=== PATIENT | female | born 1990 | race Caucasian/White ===

== ENCOUNTER 2017-06-30 07:29 | Emergency (ER) | payer OTHER ==
[~2017-06-30] VITALS: Ht 165.1 cm; Wt 63.0 kg
[2017-06-30] MEDS ORDERED: METOCLOPRAMIDE HCL 10MG/2ML VIAL IV STA (09:50)
[2017-06-30] MEDS ORDERED: FAMOTIDINE 20MG/2ML VIAL IV STA (09:50)
[2017-06-30] MEDS ORDERED: SODIUM CHLORIDE 0.9% 1,000 ML IV ONE (09:50)
[2017-06-30 10:29] LABS: BASOPHILS % 0.7 % (0.0-2.0); EOSINOPHILS % 1.6 % (0.0-5.0); HEMATOCRIT. 42.6 % (36.0-48.0); HEMOGLOBIN. 14.1 g/dL (12.0-16.0); LYMPHOCYTES % 20.3 % (20.0-50.0); MEAN CORPUSCULAR HEMOGLOBIN 29.6 pg (28.0-32.0); MEAN CORPUSCULAR VOLUME 89.1 fL (81.0-99.0); MEAN PLATELET VOLUME 7.7 fl (7.4-10.4); MONOCYTES % 8.9 % (2.0-8.0); NEUTROPHILS % 68.5 % (40.0-76.0); PLATELET 248 x1000/uL (130-400); RED BLOOD CELL COUNT 4.78 mill/uL (4.2-5.4); RED CELL DISTRIBUTION WIDTH 14.2 % (11.6-14.6)
[2017-06-30 10:34] LABS: CHLORIDE 109 mEq/L (98-107)
[2017-06-30 10:49] LABS: HCG SCREEN NEGATIVE
[2017-06-30 12:23] VITALS: BP 123/74
[2017-06-30 13:48] LABS: CLARITY URINE CLOUDY (CLEAR); COLOR URINE ORANGE (YELLOW); KETONES URINE NEGATIVE (NEGATIVE); LEUKOCYTE ESTERASE URINE NEGATIVE (NEGATIVE); NITRITE URINE NEGATIVE (NEGATIVE); OCCULT BLOOD URINE 3+ (NEGATIVE); PH URINE >=9.0 (4.5-8.0); PROTEIN URINE TRACE (NEGATIVE); SPECIFIC GRAVITY URINE 1.014 (1.005-1.030); UROBILINOGEN URINE 0.2 E.U./dL (0.2-1.0)
== END 2017-06-30 12:42 | disposition home or self-care (01) ==
LOC: ER 07:34
DX: R10.13 Epigastric pain (principal)
CPT/HCPCS: 36415; 80053; 81001; 81025; 83690; 84703; 85025; 96361; 96374; 96375; 99285; J3490; J7030; Z7610

== ENCOUNTER 2018-09-12 21:59 | Emergency (ER) | payer OTHER ==
[~2018-09-12] VITALS: Ht 165.1 cm; Wt 63.0 kg
[2018-09-12 22:24] VITALS: BP 102/54
== END 2018-09-13 00:34 | disposition left against medical advice (07) ==
LOC: ER 21:59
DX: Z53.21 Procedure and treatment not carried out due to patient leaving prior to being seen by health care provider (principal)

== ENCOUNTER 2020-05-01 16:46 | Emergency (ER) | payer OTHER ==
[~2020-05-01] VITALS: Ht 165.1 cm; Wt 66.0 kg
[2020-05-01] MEDS ORDERED: MORPHINE SULFATE 4 MG/ML CPJ (NOT FOR IM USE) IV STA (18:21)
[2020-05-01 18:42] LABS: HEMATOCRIT. 37.6 % (36.0-48.0); HEMOGLOBIN. 12.6 g/dL (12.0-16.0); MEAN CORPUSCULAR HEMOGLOBIN 30.9 pg (28.0-32.0); MEAN PLATELET VOLUME 7.8 fl (7.4-10.4); PLATELET 180 x1000/uL (130-400); RED BLOOD CELL COUNT 4.09 mill/uL (4.2-5.4); RED CELL DISTRIBUTION WIDTH 12.7 % (11.6-14.6)
[2020-05-01 18:48] LABS: CHLORIDE 106 mEq/L (98-107)
[2020-05-01 18:54] LABS: HCG SCREEN NEGATIVE
[2020-05-01 19:15] LABS: PLATELET ESTIMATE NORMAL
[2020-05-01 21:48] LABS: CLARITY URINE CLOUDY (CLEAR); COLOR URINE YELLOW (YELLOW); KETONES URINE 1+ (NEGATIVE); LEUKOCYTE ESTERASE URINE NEGATIVE (NEGATIVE); NITRITE URINE NEGATIVE (NEGATIVE); OCCULT BLOOD URINE NEGATIVE (NEGATIVE); PH URINE 8.5 (4.5-8.0); PROTEIN URINE NEGATIVE (NEGATIVE); SPECIFIC GRAVITY URINE 1.012 (1.005-1.030); UROBILINOGEN URINE 0.2 E.U./dL (0.2-1.0)
[2020-05-01 22:32] VITALS: BP 115/69
== END 2020-05-01 22:34 | disposition home or self-care (01) ==
LOC: ER 16:46
DX: R10.13 Epigastric pain (principal); R50.9 Fever, unspecified; R11.0 Nausea
CPT/HCPCS: 36415; 74176; 76856; 80053; 81003; 84703; 85025; 93005; 96374; 99285; J2270

== ENCOUNTER 2024-01-22 17:46 | Emergency (ER) | payer MEDICAID, OTHER ==
[~2024-01-22] VITALS: Ht 165.1 cm; Wt 64.0 kg
[2024-01-22 17:57] VITALS: TEMP 98.3; O2SAT 100
[2024-01-22 19:04] VITALS: BP 119/68; PULSE 57; RESP 16
[2024-01-22] MEDS: KETOROLAC 15MG/ML VIAL IM ONE (19:04)
[2024-01-22] MEDS ORDERED: IBUP-2028 MT (21:05)
== END 2024-01-22 22:36 | disposition home or self-care (01) ==
LOC: ER 17:46
DX: J02.9 Acute pharyngitis, unspecified (principal); M54.2 Cervicalgia; Z98.890 Other specified postprocedural states
CPT/HCPCS: 87430; 87070; 70490; 96372; 99285; J1885; Z7610